=== PATIENT | female | born 1960 | race Two or more races ===

== ENCOUNTER 2018-01-05 16:55 | Emergency (ER) | payer OTHER ==
--- NOTE | 2018-01-05 17:07 | PDOC ---
History of Present Illness <Joseline Dan - Last Filed: 01/05/18 17:13> - General History Source: Patient Exam Limitations: No Limitations - History of Present Illness Initial Comments: 01/05/18 17:17 The patient is a 57 year old female, with a significant past medical history of hypertension, who presents to the emergency department with, evaluation of a rash beginning three days ago. 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 The patient states she believed it might have been her gallbladder as she states she has gained weight recently so she had an ultrasound and EKG performed both of which were normal. The patient states she has noticed in the past couple of days a red rash around the right middle back and right upper quadrant where the pain first began. The patient states the pain is rated 8/10 and is worse with movement. She denies recent fevers, chills, headache or dizziness. She denies recent nausea, vomit, diarrhea or constipation. She denies recent dysuria, frequency, urgency or hematuria. She denies recent chest pain or shortness of breath. Allergies: NKA <Rios Crawley - Last Filed: 01/05/18 17:19> - General Chief Complaint: Rash Stated Complaint: SUSPECTED SHINGLES Time Seen by Provider: 01/05/18 17:01 Past History <Joseline Dan - Last Filed: 01/05/18 17:13> <Rios Crawley - Last Filed: 01/05/18 17:19> - Past Medical History Allergies/Adverse Reactions: Allergies Allergy/AdvReac Type Severity Reaction Status Date / Time No Known Allergies Allergy Verified 01/05/18 17:09 Home Medications: Ambulatory Orders Gabapentin 300 mg PO ASDIR #90 capsule 01/05/18 Metoprolol Tartrate 25 mg PO DAILY 01/05/18 Valacyclovir HCl [Valtrex -] 1,000 mg PO TID #21 tablet 01/05/18 Review of Systems - Review of Systems Comments:: 01/05/18 17:17 GENERAL/CONSTITUTIONAL: No fever or chills. No weakness. HEAD, EYES, EARS, NOSE AND THROAT: No change in vision. No ear pain or discharge. No sore throat. CARDIOVASCULAR: No chest pain or shortness of breath. RESPIRATORY: No cough, wheezing, or hemoptysis. GASTROINTESTINAL: No nausea, vomiting, diarrhea or constipation. GENITOURINARY: No dysuria, frequency, or change in urination. MUSCULOSKELETAL: No joint or muscle swelling or pain. No neck or back pain. SKIN: +Rash with associated pain to right mid back and right upper quadrant. NEUROLOGIC: No headache, vertigo, loss of consciousness, or change in strength/ sensation. ENDOCRINE: No increased thirst. No abnormal weight change. HEMATOLOGIC/LYMPHATIC: No anemia, easy bleeding, or history of blood clots. ALLERGIC/IMMUNOLOGIC: No hives or skin allergy. <Rios Crawley - Last Filed: 01/05/18 17:19> *Physical Exam - Physical Exam Comments: GENERAL: Awake, alert, and fully oriented, in no acute distress HEAD: No signs of trauma EYES: PERRLA, EOMI, sclera anicteric, conjunctiva clear ENT: Auricles normal inspection, hearing grossly normal, nares patent, oropharynx clear without exudates. Moist mucosa NECK: Normal ROM, supple, no lymphadenopathy, JVD, or masses LUNGS: Breath sounds equal, clear to auscultation bilaterally. No wheezes, and no crackles HEART: Regular rate and rhythm, normal S1 and S2, no murmurs, rubs or gallops ABDOMEN: Soft, nontender, normoactive bowel sounds. No guarding, no rebound. No masses EXTREMITIES: Normal range of motion, no edema. No clubbing or cyanosis. No cords, erythema, or tenderness NEUROLOGICAL: Cranial nerves II through XII grossly intact. Normal speech, normal gait SKIN: Warm, Dry, normal turgor. +Erythematous rash with excoriated healing lesions in a dermatomal distribution to R chest below the breast wrapping around to the back. <Joseline Dan - Last Filed: 01/05/18 17:13> - Vital Signs Last Vital Signs Temp Pulse Resp BP Pulse Ox 97.7 F 66 18 155/95 99 01/05/18 16:57 01/05/18 16:57 01/05/18 16:57 01/05/18 16:57 01/05/18 16:57 <Rios Crawley - Last Filed: 01/05/18 17:19> *DC/Admit/Observation/Transfer - Discharge Dispostion Admit: No <Joseline Dan - Last Filed: 01/05/18 17:13> - Attestations Scribe Attestion: 01/05/18 17:18 Documentation prepared by Rios Crawley, acting as medical accounting clerk for Joseline Dan MD. <Rios Crawley - Last Filed: 01/05/18 17:19> Diagnosis at time of Disposition: Shingles Qualifiers: Herpes zoster complications: without complications Qualified Code(s): B02.9 - Zoster without complications - Discharge Dispostion Disposition: HOME Condition at time of disposition: Stable - Prescriptions Prescriptions: Gabapentin 300 mg PO ASDIR #90 capsule Valacyclovir HCl [Valtrex -] 1,000 mg PO TID #21 tablet - Patient Instructions Printed Discharge Instructions: DI for Shingles - Post Discharge Activity Forms/Work/School Notes: Back to Work
[2018-01-05 17:14] VITALS: BP 155/95; PULSE 66; TEMP 97.7; BMI 24.7
== END 2018-01-05 17:27 | disposition home or self-care (01) ==
LOC: FER 16:55
DX: B02.9 Zoster without complications (principal)
CPT/HCPCS: 99281-25

== ENCOUNTER 2018-09-29 21:34 | Emergency (ER) | payer OTHER ==
--- NOTE | 2018-09-29 21:38 | PDOC ---
History of Present Illness - History of Present Illness Initial Comments: The patient is a 57 year old female, with a significant past medical history of HTN, who presents to the emergency department with chest pain 30 minutes prior to arrival. Patient states that she just came back from the [facility] last night. She states that 30 minutes prior to arriving to the ER she began experiencing chest pain that she describes as spasm-like, not pressure like, denies radiation. She states that in the [facility] she has some dysuria and is now on a course of Ciprofloxacin Denies any leg swelling or pain. She denies recent fevers, chills, headache or dizziness. She denies recent nausea, vomit, diarrhea or constipation. She denies recent frequency, urgency or hematuria. She denies any shortness of breath. She denies any rashes, bumps, or bruises. She denies any back or abdominal pain. Allergies: NKA Past surgical history: None reported. Social history: Works as an ER nurse at [employer]. Nonsmoker. Denies EtOH use and recreational drug use. 09/29/18 22:22 <Ciera Martinez - Last Filed: 09/29/18 22:22> <Luis Enrique Mae - Last Filed: 09/30/18 01:46> - General Chief Complaint: Chest Pain Stated Complaint: CHEST PAIN Time Seen by Provider: 09/29/18 21:38 Past History <Ciera Martinez - Last Filed: 09/29/18 22:22> - Past Medical History COPD: No HTN: Yes - Suicide/Smoking/Psychosocial Hx Smoking History: Never smoked Hx Alcohol Use: No Drug/Substance Use Hx: No Substance Use Type: None <Luis Enrique Mae - Last Filed: 09/30/18 01:46> - Past Medical History Allergies/Adverse Reactions: Allergies Allergy/AdvReac Type Severity Reaction Status Date / Time No Known Allergies Allergy Verified 01/05/18 17:09 Home Medications: Ambulatory Orders Gabapentin 300 mg PO ASDIR #90 capsule 01/05/18 Metoprolol Tartrate 25 mg PO DAILY 01/05/18 Valacyclovir HCl [Valtrex -] 1,000 mg PO TID #21 tablet 01/05/18 Review of Systems - Review of Systems Comments:: A complete review of 10 out of 10 review of systems is taken and is negative apart from what is previously mentioned below and in the HPI. Constitutional: no recent illness; no fever ENT: no sore throat Cardiovascular: no palpitations; +chest pain Pulmonary: no cough; no trouble breathing Gastrointestinal: No nausea; no vomiting; no diarrhea Genitourinary: +dysuria; no hematuria Skin: No rash Lymph system: No swollen glands Musculoskeletal: No joint swelling Neurological: No weakness; No numbness; No headache; no vertigo; no lightheadedness Psychiatric:No anxiety; no depression <Ciera Martinez - Last Filed: 09/29/18 22:22> *Physical Exam - Vital Signs Last Vital Signs Temp Pulse Resp BP Pulse Ox 98.6 F 60 16 179/77 H 98 09/29/18 21:36 09/29/18 21:36 09/29/18 21:36 09/29/18 21:36 09/29/18 21:36 - Physical Exam Comments: Vitals: Triage Vital signs reviewed General Appearance: no acute distress, well nourished well developed Head: Atraumatic Chest Wall: Nontender Cardiac: Regular rate and rhythm, no murmurs, no rubs, no gallops Lungs: Clear to auscultation bilateral, good air movement bilaterally Abdomen: Soft, non distended, normal bowel sounds, non tender to palpation Extremities: Full range of motion to all extremities, no cyanosis, clubbing, or edema Skin: Warm and dry, no rashes or lesions, no rash, no petechiae Neuro: AOX3; Cranial Nerves 2-12 grossly intact, Strength intact to all extremities, Sensation intact to all extremities, gait normal Psych: Normal mood, normal affect 09/29/18 22:24 <Ciera Martinez - Last Filed: 09/29/18 22:22> Moderate Sedation - Procedure Monitoring Vital Signs: Procedure Monitoring Vital Signs Temperature 98.6 F 09/29/18 21:36 Pulse Rate 60 09/29/18 21:36 Respiratory Rate 16 09/29/18 21:36 Blood Pressure 179/77 H 09/29/18 21:36 O2 Sat by Pulse Oximetry (%) 98 09/29/18 21:36 <Ciera Martinez - Last Filed: 09/29/18 22:22> Heart Score/ECG Review - History History: Slightly suspicious - Electrocardiogram EKG: Normal - Age Age: 45-65 - Risk Factors Risk Factors Heart Score: Yes Hx Hypercholesterolemia Based on the list above the patient has:: 1-2 risk factors - Troponin Troponin: </= normal limit - Score Heart Score - Total: 2 <Luis Enrique Mae - Last Filed: 09/30/18 01:46> ED Treatment Course - LABORATORY CBC & Chemistry Diagram: 09/29/18 22:10 09/29/18 22:10 <Ciera Martinez - Last Filed: 09/29/18 22:22> - LABORATORY CBC & Chemistry Diagram: 09/29/18 22:10 09/29/18 22:10 <Luis Enrique Mae - Last Filed: 09/30/18 01:46> Medical Decision Making - Medical Decision Making 09/29/18 23:27 EKG performed at 2143 demonstrates normal sinus rhythm no ST elevations noted T- wave inversions no evidence of WPW, Brugada, prolonged QT 57 years old with atypical chest discomfort feels like a squeezing sensation intermittent currently pain-free Recent travel to the [facility]. Unable to use PERC criteria to risk stratify however low risk patient we'll send d-dimer Patient with no calf swelling or calf tenderness. EKG nonischemic first troponin negative however d-dimer elevated CTA ordered. CTA with no evidence. Second troponin negative Patient advised to follow-up with her doctor this week she will return to the ED for any persistent returning chest pain any shortness of breath calf pain leg swelling or for any concerns. Findings, the need for follow-up and strict return instructions discussed patient. <Luis Enrique Mae - Last Filed: 09/30/18 01:46> *DC/Admit/Observation/Transfer - Attestations Scribe Attestion: 09/29/18 22:24 Documentation prepared by Ciera Martinez, acting as family practice medical doctor for Luis Enrique Mae MD. <Ciera Martinez - Last Filed: 09/29/18 22:22> - Discharge Dispostion Decision to Admit order: No <Luis Enrique Mae - Last Filed: 09/30/18 01:46> Diagnosis at time of Disposition: Atypical chest pain - Discharge Dispostion Disposition: HOME Condition at time of disposition: Stable - Patient Instructions Printed Discharge Instructions: DI for Atypical Chest Pain Additional Instructions: Drink plenty of fluids. Follow-up with your doctor tomorrow. Return to the emergency department for any returning chest pain shortness of breath calf leg swelling or for any concerns. - Post Discharge Activity Forms/Work/School Notes: Back to Work
[2018-09-29 21:40] VITALS: PULSE 60; TEMP 98.6; BMI 24.7
[2018-09-29 22:29] LABS: BASO % 0.5 % (0-2.0); HEMATOCRIT 37.6 % (32.4-45.2); HEMOGLOBIN 12.4 GM/dl (10.7-15.3); LYMPH % 39.4 % (8-40); MCH 29.1 pg (25.7-33.7); MEAN CELL VOLUME 88.2 fl (80-96); MEAN PLT VOLUME 7.8 fl (7.5-11.1); MONO % 6.1 % (3.8-10.2); PLATELET COUNT 305 K/MM3 (134-434); RBC 4.27 M/mm3 (3.60-5.2); WHITE BLOOD COUNT 5.5 K/mm3 (4.0-10.8)
[2018-09-29 22:41] LABS: ALBUMIN 3.9 g/dl (3.5-5.0); ALK PHOS 68 U/L (32-92); ANION GAP 8 MMOL/L (8-16); BILIRUBIN,TOTAL 0.5 mg/dl (0.2-1.0); BLOOD UREA NITROGEN 15 mg/dl (7-18); CALCIUM 9.1 mg/dl (8.4-10.2); CHLORIDE 105 mmol/L (98-107); CO2 26 mmol/L (22-28); CREATININE 0.8 mg/dl (0.6-1.3); GLUCOSE,RANDOM 102 mg/dl (74-106); POTASSIUM 4.2 mmol/L (3.5-5.1); SGOT/AST 59 U/L (10-42); SGPT/ALT 73 U/L (10-40); SODIUM 139 mmol/L (136-145); TOT PROT 7.5 g/dl (6.4-8.3)
[2018-09-29 23:41] VITALS: BP 133/82
--- NOTE | 2018-09-30 12:21 | EKG ---
Test Reason : Blood Pressure : / mmHG Vent. Rate : 060 BPM Atrial Rate : 060 BPM P-R Int : 134 ms QRS Dur : 092 ms QT Int : 448 ms P-R-T Axes : 057 012 024 degrees QTc Int : 448 ms NORMAL SINUS RHYTHM MODERATE VOLTAGE CRITERIA FOR LVH, MAY BE NORMAL VARIANT BORDERLINE ECG WHEN COMPARED WITH ECG OF 28-AUG-2011 12:56, NO SIGNIFICANT CHANGE WAS FOUND Confirmed by MELANIE YOUNG, JOHN ([id number]) on 09/30/2018 12:21:19 PM Referred By: Jones CAMPOS Confirmed By:JOHN NAVARRO MD
== END 2018-09-30 01:53 | disposition home or self-care (01) ==
LOC: FER 21:34
DX: R07.89 Other chest pain (principal); E78.00 Pure hypercholesterolemia, unspecified
CPT/HCPCS: 36415; 71045-TC-FY; 71275-TC; 80053; 84484; 85025; 85379; 93005; 99283-25

== ENCOUNTER 2020-10-07 13:20 | Emergency (ER) | payer BC ==
[2020-10-07 13:26] VITALS: BP 99/71; PULSE 63; TEMP 99.5; BMI 25.7
[2020-10-07] MEDS ORDERED: ASPIRIN 325 MG TABLET PO ONE (13:53)
[2020-10-07] MEDS ORDERED: ASPIRIN 325 MG TABLET ONE (13:59)
[2020-10-07 14:46] LABS: BASO % 1.7 % (0-2.0); EOS % 1.6 % (0-4.5); HEMATOCRIT 37.1 % (32.4-45.2); HEMOGLOBIN 12.3 GM/dl (10.7-15.3); LYMPH % 37.1 % (8-40); MCH 29.1 pg (25.7-33.7); MCHC 33.2 g/dl (32.0-36.0); MEAN CELL VOLUME 87.5 fl (80-96); MEAN PLT VOLUME 8.4 fl (7.5-11.1); NEUT % 51.6 % (42.8-82.8); PLATELET COUNT 272 K/MM3 (134-434); RBC 4.24 M/mm3 (3.60-5.2); RDW 12.8 % (11.6-15.6); WHITE BLOOD COUNT 6.1 K/mm3 (4.0-10.8)
[2020-10-07 14:53] LABS: ALBUMIN 4.5 g/dl (3.4-5.0); BILIRUBIN,TOTAL 0.7 mg/dl (0.2-1); CALCIUM 9.8 mg/dl (8.5-10); CREATININE 0.7 mg/dl (0.55-1.3); TOT PROT 7.8 g/dl (6.4-8.2)
== END 2020-10-07 15:20 | disposition home or self-care (01) ==
LOC: FER 13:20
DX: R07.89 Other chest pain (principal)
CPT/HCPCS: 36415; 71046-TC-FY; 80053; 84484; 85025; 93005; 99284-25